=== PATIENT | female | born 2000 | race Caucasian/White ===

== ENCOUNTER 2020-01-29 15:34 | Emergency (ER) | payer BC, SELFPAY ==
[2020-01-29 15:36] VITALS: BP 130/86; PULSE 102; RESP 14; TEMP 36.7; O2SAT 100
--- NOTE | 2020-01-29 15:44 | ED.GENADULT ---
HPI - General Adult General Chief complaint: Unspecified Stated complaint: vomiting blood Time Seen by Provider: 01/29/20 15:44 Source: patient Mode of arrival: ambulatory Limitations: no limitations History of Present Illness HPI narrative: This patient is a 19 year old female who presents for evaluation of vomiting blood. PAtient states this morning she developed warm sensation with nausea. Shortly afterwards, she reports she vomited blood clots. She reports having a couple more episodes of vomiting clots. She states it looks like her nose may have been bleeding but she denies epistaxis. Her last episode of vomiting blood was at noon today. She has continued to have nausea with bilious emesis. She denies any further hematemesis . She states she has been having issues with GERD recently so she is taking omeprazole. LAst night she was drinking alcohol but she states she felt fine initially upon waking this morning. She denies blood in her stool . She has some chronic issues with bloating feeling to left lower abdomen for weeks. Related Data Home Medications Medication Instructions Recorded Confirmed dextroamphetamine-amphetamine 25 mg PO DAILY 01/29/20 omeprazole 40 mg PO DAILY 01/29/20 Allergies Allergy/AdvReac Type Severity Reaction Status Date / Time No Known Allergies Allergy Verified 01/29/20 15:48 Review of Systems Review of Systems: All systems reviewed & are unremarkable except as noted in HPI and below Constitutional: Constitutional: Denies chills and Denies fever(s) ENT: Reports dizziness Cardiovascular: Cardiovascular: Denies chest pain Respiratory: Respiratory: Denies cough and Denies dyspnea Gastrointestinal: Gastrointestinal: Reports abdominal pain, Reports nausea and Reports vomiting PMFSH Past Medical History Medical History (Updated 01/29/20 @ 18:06 by Jesica Motley MD) GERD (gastroesophageal reflux disease) Social History Social History (Updated 01/29/20 @ 16:13 by Jesica Motley MD) Alcohol intake: current Gender identity (if verbalized by the patient): Female Exam Narrative: Exam Narrative: GENERAL: Well-appearing, well-nourished, and in no acute distress. HEAD: Normocephalic, atraumatic EYES: PERRLA and EOMI, conjunctiva clear without discharge THROAT:Mucous membranes moist, Oropharynx normal without erythema, exudate, peritonsillar swelling or fluctuance NECK: Supple, without lymphadenopathy or mass RESPIRATORY: No respiratory distress, Airway patent, Respirations non-labored, Clear to auscultation without rales, rhonchi or wheeze HEART: Regular rate and rhythm. No murmur heard. Normal peripheral pulses. ABDOMEN: Soft, nontender, nondistended, normal active bowel sounds. No masses. No rebound or guarding, No organomegaly. EXTREMITIES: No edema, normal strength with full range of motion. SKIN: Warm, dry, normal color without rash NEURO: Alert and oriented x3. CN 2-12 grossly intact. No focal deficits. PSYCH: Normal mood and affect. Course Reevaluation(s) Reevaluation #1: I Discussed with patient labs are unremarkable. I explained in order to rule out contined bleeding I recommend NGT. She has declined at this time. She states the last couple of times she had vomiting prior to arrival there was no blood present. She was given return precautions and she will follow up with gastroenterology. Date: 01/29/20 Time: 18:02 Reevaluation #2: Patient decided to have NGT placed. no blood seen during lavage. Date: 01/29/20 Time: 19:04 Vital Signs Vital signs: Vital Signs Temperature 98.1 F 01/29/20 15:36 Pulse Rate 102 H 01/29/20 15:36 Respiratory Rate 14 01/29/20 15:36 Blood Pressure 130/86 01/29/20 15:36 Pulse Oximetry 100 01/29/20 15:36 Temperature 98.1 F 01/29/20 15:36 Pulse Rate 105 H 01/29/20 16:44 Respiratory Rate 14 01/29/20 15:36 Blood Pressure 127/91 H 01/29/20 16:44 Pulse Oximetry 100 01/29/20 15:36
[2020-01-29 16:36] LABS: Basophils Percent Auto 0.3 % (0.2-1.2); Eosinophils Percent Auto 0.2 % (0-4.4); Hematocrit 40.5 % (37.0-47.0); Hemoglobin 13.6 g/dL (12.0-15.0); Immature Granulocyte Absolute 0.04 K/mm3 (0.00-0.031); Immature Granulocyte Percent A 0.4 % (0-0.5); Lymphocytes Absolute Auto 0.68 K/mm3 (0.9-3.2); Lymphocytes Percent Auto 7.3 % (18.3-44.2); Mean Corpuscular HGB Conc 33.6 g/dl (32-36); Mean Corpuscular Hemoglobin 29.6 pg (26-34); Mean Platelet Volume 9.7 fl (7.4-10.4); Monocytes Absolute Auto 0.4 K/mm3 (0.1-0.6); Monocytes Percent Auto 3.8 % (2.6-8.5); Neutrophils Absolute Auto 8.2 K/mm3 (1.3-6.7); Platelet Count Result 286 k/mm3 (150-375); Red Cell Distribution Width 13.2 % (11.5-14.5); White Blood Count 9.3 K/mm3 (4.5-10.0)
[2020-01-29] MEDS: ONDANSETRON INJ 4 MG/2 ML VIAL IV PUSH (16:38)
[2020-01-29] MEDS: LACTATED RINGERS 1,000 ML 999 ML IV CONT (16:38)
[2020-01-29] MEDS: PANTOPRAZOLE SODIUM IV 40 MG VIAL IV PUSH (16:39)
[2020-01-29 16:41] LABS: Add Urine Microscopic? YES; Appearance Urine Cloudy (Clear); Bacteria Urine Trace /hpf; Bilirubin Urine Negative (Negative); Blood Urine Negative (Negative); Color Urine Yellow (Yellow); Glucose Urine UA Negative (Negative); Ketones Urine Negative (Negative); Leukocyte Esterase Ur Negative LEU/UL (Negative); Mucus Urine Rare /lpf; Nitrate Urine Negative (Negative); Protein Urine Negative (Negative); Specific Grav Ur 1.013 (1.001-1.035); Squamous Epithelial Cell Urine Many /hpf (Few); Urobilinogen Urine Negative mg/dL (<2.0); WBC Urine 0-3 /hpf
[2020-01-29 16:42] VITALS: BP 126/87; PULSE 94
[2020-01-29 16:43] VITALS: BP 133/89; PULSE 98
[2020-01-29 16:43] LABS: INR 1.1; Prothrombin Time 14.3 Seconds (11.1-14.7)
[2020-01-29 16:44] VITALS: BP 127/91; PULSE 105
[2020-01-29 16:44] LABS: Partial Thromboplastin Time 30.7 SECONDS (22.3-36.8)
[2020-01-29 16:45] LABS: Alanine Aminotransferase 26 U/L (4-35); Albumin Level 4.6 g/dL (3.5-5.1); Alkaline Phosphatase 53 U/L (38-126); Anion Gap 8 mmol/L (8-16); Aspartate Amino Transferase 34 U/L (14-36); Bilirubin,Total 0.6 mg/dL (0.2-1.3); Blood Urea Nitrogen 12 mg/dL (7-17); Calcium 9.2 mg/dL (8.4-10.2); Carbon Dioxide 26 mmol/L (22-30); Chloride 105 mmol/L (98-107); Estimated CRCL calculation 92 ml/min; Estimated Glomerular Filt Rate > 60; Glucose 91 mg/dL (65-105); Sodium 139 mmol/L (137-145)
--- NOTE | 2020-01-29 18:07 | PC.NURSE ---
pt refused NG tube and gastric lavage
--- NOTE | 2020-01-29 19:20 | PC.NURSE ---
1900 NG 14 tube inserted and lavaged Dr Motley at bed side and NG removed
[2020-01-29 19:36] VITALS: BP 116/73; PULSE 83; RESP 16; TEMP 36.8; O2SAT 100
== END 2020-01-29 19:38 | disposition home or self-care (01) ==
PROVIDERS: Emergency Provider General Practice
DX: K92.0 Hematemesis (principal); K21.9 Gastro-esophageal reflux disease without esophagitis
CPT/HCPCS: 36415; 80053; 81001; 81025; 85025; 85610; 85730; 86850; 86900; 86901; 96361; 96374; 96375; 99284; C9113; J2405; J7120